=== PATIENT | female | born 1965 | race Caucasian/White ===

== ENCOUNTER 2023-12-12 12:00 | Day surgery (SDC) | payer BC, OTHER ==
[2023-12-10 16:59] LABS: BASOPHILS # (AUTO) 0.1 X10'3 (0-0.2); BASOPHILS % (AUTO) 0.8 % (0-1); EOSINOPHILS # (AUTO) 0.2 X10'3 (0-0.9); EOSINOPHILS % (AUTO) 2.5 % (0-6); LYMPHOCYTES # (AUTO) 2.3 X10'3 (1.1-4.8); LYMPHOCYTES % (AUTO) 26.9 % (21-51); MEAN CORPUSCULAR HGB CONC 34.8 g/dL (33.0-36.5); MEAN CORPUSCULAR VOLUME 89.3 FL (78-98); MEAN PLATELET VOLUME 8.8 FL (7.4-10.4); MONOCYTES # (AUTO) 0.6 X10'3 (0-0.9); MONOCYTES % (AUTO) 6.7 % (2-12); NEUTROPHILS # (AUTO) 5.4 X10'3 (1.8-7.7); NEUTROPHILS % (AUTO) 63.1 % (42-75); PRE OP HEMATOCRIT 41.6 % (35.0-45.0); PRE OP HEMOGLOBIN 14.5 g/dL (12.0-16.0); PRE OP PLATELET COUNT 291 X10'3 (140-440); PRE OP WHITE BLOOD COUNT 8.5 10'3 (4.8-10.8); RED BLOOD COUNT 4.66 X10'6 (4.20-5.60); RED CELL DISTRIBUTION WIDTH 12.4 % (11.5-14.5)
[2023-12-10 17:03] LABS: ALBUMIN 3.8 G/DL (3.4-5.0); ALBUMIN/GLOBULIN RATIO 0.9 (1.1-1.5); ALKALINE PHOSPHATASE 92 IU/L (46-116); BLOOD UREA NITROGEN 13 MG/DL (7-18); BUN/CREATININE RATIO 12.7 (10.0-20.0); CALCIUM 8.6 MG/DL (8.5-10.1); CHLORIDE 100 MMOL/L (99-107); CREATININE 1.02 MG/DL (0.40-0.90); PRE OP ALT 44 U/L (30-65); PRE OP ANION GAP 6 (8-16); PRE OP AST 26 U/L (10-37); PRE OP BILIRUB, TOTAL 0.3 MG/DL (0.0-1.0); PRE OP GLUCOSE 87 MG/DL (70-104); PRE OP POTASSIUM 3.6 MMOL/L (3.4-5.1); PRE OP SODIUM 140 MMOL/L (135-145); TOTAL CARBON DIOXIDE 33.9 MMOL/L (24-32); TOTAL PROTEIN 8.1 G/DL (6.4-8.2); eGFR 56 ML/MIN
[~2023-12-12] VITALS: Ht 162.6 cm; Wt 89.4 kg
[2023-12-12] VITALS (8 sets, daily range): BP systolic 108–146; BP diastolic 70–77; PULSE 69–88; RESP 11–16; TEMP 99.1; O2SAT 74–99
[2023-12-12] MEDS: gentamicin inj 350 MG in normal saline 100ml IV soln 91.25 ML IV ONE (05:30)
[~2023-12-12 12:00] MED LIST: DESV100T PO; HYDR200T80 PO; MULT-1085 PO; PHEN37.590 PO; VITD400T PO
[2023-12-12] MEDS: clindamycin-Cleocin 900mg/D5W 50 ML IV ONE (12:55)
[2023-12-12] MEDS: famotidine 20mg tablet PO ONE (12:55)
[2023-12-12] MEDS: ringers solution, lacted 1,000 ML IV SCH ×2 (12:56→17:28)
[2023-12-12] MEDS ORDERED: fentaNYL/PF 50MCG/1 ML 2ML syringe IV PRN ×2 (13:20)
[2023-12-12] MEDS ORDERED: morphine 4 MG/ML inj SYRINge IV PRN (13:20)
[2023-12-12] MEDS ORDERED: hydrALAZINE 20mg/ml inj. IV PRN (13:20)
[2023-12-12] MEDS ORDERED: labetalol 20mg/4ml (5mg/ml) syringe IV PRN (13:20)
[2023-12-12] MEDS ORDERED: morphine 2 MG/ML inj. syringe IV PRN (13:20)
[2023-12-12] MEDS ORDERED: ondansetron/PF 4mg/2ml inj IV PRN (13:20)
[2023-12-12] MEDS ORDERED: methylene blue (5mg/ml) 50mg/10ml ampul IV ONE (14:37)
[2023-12-12] MEDS ORDERED: LIDOcaine 1% (10mg/ml)w/preservative inj. 20ml MDV ONE (14:44)
[2023-12-12] MEDS ORDERED: sevoflurane 250ml liquid IH ONE (14:57)
[2023-12-12] MEDS ORDERED: fentaNYL/PF 50MCG/1 ML 2ML syringe ONE (15:01)
[2023-12-12] MEDS ORDERED: midazolam 1 mg/ML 2ml injection ONE (15:01)
[2023-12-12] MEDS ORDERED: propofol inj 20 ML IV ONE (15:05)
[2023-12-12] MEDS ORDERED: LIDOcaine 2% (20mg/ml) 5ml vial ONE (15:05)
[2023-12-12] MEDS ORDERED: acetaminophen 1,000mg/100ml IV 100 ML IV ONE (15:06)
[2023-12-12] MEDS ORDERED: dexamethasone sod phosphate 4mg/ml inj. ONE (15:10)
[2023-12-12] MEDS ORDERED: ondansetron/PF 4mg/2ml inj ONE (15:10)
[2023-12-12] MEDS: LIDOcaine-PF 1% 20mL vial 20 ML VIAL IJ ONE (15:27)
[2023-12-12] MEDS: methylene blue (5mg/ml) 50mg/10ml ampul IV ONE (15:45)
[2023-12-12] MEDS: BUPIVACAINE liposomal/PF 13.3 MG/ML vial IM ONE (16:27)
[2023-12-12] MEDS: HYDROcodone/acetaminophen 5mg/325mg tablet PO ONE (17:36)
== END 2023-12-12 17:52 | disposition home or self-care (01) ==
LOC: PAS 12:00
PROVIDERS: ATTEND Surgery
DX: C50.411 Malignant neoplasm of upper-outer quadrant of right female breast (principal); I49.1 Atrial premature depolarization; F41.9 Anxiety disorder, unspecified; F32.A Depression, unspecified; E66.3 Overweight; M06.9 Rheumatoid arthritis, unspecified; Z79.899 Other long term (current) drug therapy; Z90.710 Acquired absence of both cervix and uterus; Z98.890 Other specified postprocedural states; Z68.33 Body mass index [BMI] 33.0-33.9, adult; Z88.1 Allergy status to other antibiotic agents; Z88.8 Allergy status to other drugs, medicaments and biological substances
CPT/HCPCS: 19301; 36415; 38525; 38900; 76098; 80053; 82948; 85025; 93005; A6258; C9290; J0131; J1100; J1580; J2250; J2405; J2704; J3010; J3490; J7030; J7120; Q9968; Z7506; Z7508; Z7512; A4215; A4618; A6449; A7000